=== PATIENT | male | born 1940 | race Caucasian/White ===

== ENCOUNTER 2019-07-21 22:46 | Inpatient (IN) | payer MEDICARE, OTHER ==
[~2019-07-21] VITALS: Ht 185.4 cm; Wt 154.3 kg
[~2019-07-21 22:46] MED LIST: ACET325 PO; ASPI81CH PO; BISA10S PR; CIPRO500 MG PO; Cymbalta30 MG PO; DICY20 PO; DOCU100 PO; DULO30 PO; Duragesic 12 M12 MCG TOP; FENT25TP TOP; FISH1000; FOLI400 PO; GABA800 PO; GLIM4 PO; GLIP2.5ER; HYDACE10B PO; HYDACE5 PO; IBUHYD PO; INSDET100 SC; LEVO750 PO; LISI5 PO; LOVA20 PO; Lovastatin10 MG PO; METF850 PO; Norco 10-325 T1 EACH PO; OXYC15ER PO; PIOG45 PO; PROM25 PO; Prinivil10 MG PO; RANI150; RANI150 PO; Ranitidine HCl300 MG; SIMV10 PO; TERA2 PO; TERA5 PO; TOPI25 PO; TOPI50 PO; TRIHYD253A PO; TRIHYD253B PO; [UNRECOGNIZED DRUG - REMARK]; [UNRECOGNIZED DRUG - REMARK]; [UNRECOGNIZED DRUG - REMARK]
[2019-07-21 23:05] LABS: Calcium, Ionized (POC) 1.09 mmol/L (1.10-1.46); Chloride (POC) 95 mmol/L (98-108); Creatinine (POC) 1.4 mg/dL (0.8-1.3); Glucose (ISTAT POC) 456 mg/dL (70-99); Potassium (POC) 4.1 mmol/L (3.5-5.5); Sodium (POC) 132 mmol/L (135-148); Total CO2 (POC) 26 mmol/L (21-32)
[2019-07-21 23:11] LABS: BASOPHILS ABSOLUTE AUTO 0.08 K/mm3 (0.00-0.23); BASOPHILS PERCENT AUTO 1 % (0-2); EOSINOPHILS ABSOLUTE AUTO 0.09 K/mm3 (0.00-0.68); EOSINOPHILS PERCENT AUTO 1 % (0-6); Hematocrit 42.1 % (37.0-53.0); Hemoglobin 13.9 g/dL (13.5-17.5); IMMATURE GRAN ABSOLUTE AUTO 0.03 K/mm3 (0.00-0.10); IMMATURE GRAN PERCENT AUTO 0 % (0-1); LYMPHOCYTES ABSOLUTE AUTO 1.08 K/mm3 (0.84-5.20); LYMPHOCYTES PERCENT AUTO 11 % (21-46); MONOCYTES ABSOLUTE AUTO 0.73 K/mm3 (0.16-1.47); MONOCYTES PERCENT AUTO 7 % (4-13); Mean Corpuscular HGB 34.2 pg (26.0-34.0); Mean Corpuscular Volume 104 fL (80-100); Mean Platelet Volume 10.1 fL (9.1-12.4); NEUTROPHILS ABSOLUTE AUTO 7.92 K/mm3 (1.96-9.15); NEUTROPHILS PERCENT AUTO 80 % (41-73); Platelet Count 178 K/mm3 (150-400); RDW Coefficient Variation 11.8 % (11.7-14.2); RDW Standard Deviation 45.1 fL (35.1-46.3); Red Blood Cell Count 4.06 M/mm3 (4.30-5.90); White Blood Cell Count 9.93 K/mm3 (4.00-11.30)
[2019-07-21 23:33] LABS: Alanine Aminotransfer (ALT/SGP 20 U/L (12-78); Albumin, Blood 3.2 g/dL (3.4-5.0); Alk Phos 63 U/L (50-136); Anion Gap 10 mmol/L (6-16); Aspartate Aminotrans (AST/SGOT 15 U/L (12-37); Bilirubin, Total 0.4 mg/dL (0.1-1.0); Blood Urea Nitrogen 21 mg/dL (8-24); Bun/Creatinine Ratio 16.9 (12.0-20.0); CO2, Blood 24 mmol/L (21-32); Calcium, Blood 8.2 mg/dL (8.5-10.1); Chloride, Blood 100 mmol/L (98-108); Creatinine, Blood 1.24 mg/dL (0.60-1.20); Globulin, Blood 3.2 g/dL (2.2-4.0); Glomerular Filtration Rate 60 (60-); Glucose, Blood 474 mg/dL (70-99); Potassium, Blood 4.1 mmol/L (3.5-5.5); Sodium, Blood 134 mmol/L (136-145); Total Protein, Blood 6.4 g/dL (6.4-8.2); Troponin I <0.015 ng/mL (0.000-0.040)
[2019-07-21 23:33] LABS: Base Excess Venous -2.5 mmol/L; Bicarbonate Venous 20.4 mmol/L (24.0-30.0); PCO2 Venous 62.7 mmHg (38-42); PO2 Venous 33.9 mmHg (38-42); pH Blood Venous 7.21 (7.34-7.37)
[2019-07-22 02:40] LABS: Source, Urine Catheter
[2019-07-22 02:53] LABS: Bilirubin, Urine Neg (Neg); Blood, Urine Neg (Neg); Glucose Qualitative, Urine 4+ (Neg); Ketones, Urine Neg (Neg); Leukocyte Esterase, Urine Neg (Neg); Nitrite, Urine Neg (Neg); Protein, Urine Neg (Neg); Specific Gravity, Urine 1.015 (1.003-1.022); Urobilinogen, Urine NORM (Normal)
[2019-07-22 03:08] LABS: Appearance, Urine Clear (Clear); Color, Urine Yellow (P-Yellow)
--- NOTE | 2019-07-22 06:08 | NUR ---
ASSUMED PT CARE FROM CECI WEBER IN ED PT ADMITTED TO UNIT SECONDARY TO RESPIRATORY FAILURE WITH ACIDOSIS, WELL HYPERGLYCEMIA. PT ARRIVED SITTING UP IN BED TALKING. PT DID NOT APPEAR TO BE IN ANY RESPIRATORY DISTRESS AT THIS TIME. BIPAP SET UP IN ROOM BY RT; HOWEVER, PT DID NOT REQUIRE BIPAP UPON ARRIVAL. BIOX ON ROOM AIR WAS 93%. PT APPEARED ALERT AND ORIENTED AND ABLE TO MAKE HIS NEEDS KNOWN. PT HAS A STUTTER NOTED, BUT UNSURE IF THIS IS PT'S BASELINE. PT TRANSFERRED OVER TO ICU BED; PROSTHESIS TO RLE REMOVED TO OBTAIN WEIGHT. PT'S BELONGINGS WERE PLACED UP IN CUPBOARD IN ROOM. NOTED POOR HYGIENE UPON ARRIVAL WITH ABDOMINAL BINDER SATURATED IN UNKNOWN MATTER THAT IS EITHER FROM SWEAT, URINE, AND/OR FECES IT IS BROWN IN COLOR. PT WAS GIVEN A BED BATH AND QUESTIONED REGARDING THE CARE HE RECEIVES AT HOME. PT STATES HE HAS A CAREGIVER THAT COMES OUT FIVE DAYS A WEEK, BUT SHE DOES NOT WORK ON THE WEEKENDS. PT STATES SHE PREPS HIS MEALS FOR HIM AND HE IS SUFFICIENT AT CHECKING HIS OWN BLOOD SUGARS AND ADMINISTERING HIS OWN INSULIN USING AN INSULIN PEN. PT WAS NOTED TO HAVE A BASELINE TREMOR UPON ADMIT. PT STATES HE DOES NOT NORMALLY HAVE THIS TREMOR AT HOME. HOWEVER, AFTER OBTAINING HEALTH HISTORY PT DOES CLAIM THAT HE DRINKS ONE GLASS OF [place] A NIGHT AND HIS LAST DRINK WAS 07/20/19. LUNG SOUNDS CLEAR T/O. RHYTHM NOTED TO BE AFIB, WHICH IS NOT A NEW ONSET FOR PT. HR 50-70'S. ABDOMEN IS SEVERELY DISTENDED WITH NOTED ABDOMINAL/UMBILICAL HERNIA; ACTIVE BTX4. PT CLAIMS HE DOES NOT KNOW WHEN HIS LAST BM WAS. NO SAENZ CATH NOTED; HOWEVER, PT STATES HE DOES KNOW WHEN HE HAS TO USE THE BATHROOM. WOUNDS NOTED TO BOTTOM OF LEFT FOOT. PT STATES THOSE MUST BE NEW HE FREQUENTLY GOES TO HIS SUGAR SAMPLER FOR CHECKS. HE STATES HE DID SUSTAIN A FALL PRIOR TO COMING TO ER AND THAT IS WHEN HE MUST HAVE OBTAINED SCABS/OPEN AREAS TO ALL DIGITS ON LEFT FOOT; PT DENIES HITTING HIS HEAD OR LOSING CONSCIOUSNESS. SEE PHOTOS IN CHART R/T WOUNDS. PT HAS A FIELD START IV TO LEFT HAND; NS INFUSING AT 125MLS/HR. PT IS CURRENTLY NPO; HOWEVER, IS FREQUENTLY ASKING WHAT IS FOR BREAKFAST AND IF HE CAN HAVE WATER. EXPLAINED TO PT TREATMENT GOAL AND PT DOESN'T APPEAR TO HAVE AN UNDERSTANDING R/T BLOOD SUGAR CONTROL HE STATED THAT THEY GAVE HIM INSULIN IN ER, BUT DID NOT FEED HIM. ATTEMPTED TO RE-EXPLAIN WHY HE WASN'T EATING AND PT CONTINUED TO ASK WHAT WAS FOR BREAKFAST. WILL CONTINUE TO REINFORCE. PT ORIENTED TO ROOM AND CALL LIGHT. CALL LIGHT LEFT WITHIN REACH AND PT ABLE TO DEMONSTRATE HOW TO CALL FOR ASSISTANCE TO MAKE HIS NEEDS KNOWN. WILL CONTINUE TO MONITOR UNTIL REPORT IS HANDED OFF TO ONCOMING RN.
--- NOTE | 2019-07-22 07:21 | NUR ---
ASSUMED CARE: PT RESTING QUIETLY IN BED. VSS, AFIB ON TELE, HR IN 50S-60S. NO ACUTE NEEDS OR CONCERNS NOTED AT THIS TIME. RA, SATTING MID 90S
[2019-07-22 07:47] LABS: PCO2 Arterial 56.1 mmHg (35-45)
[2019-07-22 07:48] LABS: pH Blood Arterial 7.28 (7.35-7.45)
--- NOTE | 2019-07-22 07:58 | NUR ---
ASAD RECIEVED WITH CRITICAL PH. CALL TO DR ZENG. LET HIM KNOW THAT PT ROUSES AND TALKS TO STAFF, ON RA. DR INSTRUCTED TO CHANGE ORDER FOR BREATHING TX. STATES HE WILL COME SEE PT FOR FURTHER INSTRUCTIONS
--- NOTE | 2019-07-22 08:31 | NUR ---
ASKED PT IF HE KNEW WHAT MEDICATIONS HE TAKES. STATES HE DOESN'T HAVE THEM MEMORIZED AND REQUESTED I CALL HIS PHARMACY, [facility]. DUE TO HOLIDAY, PHARMACY IS CLOSED
--- NOTE | 2019-07-22 09:42 | NUR ---
PT RESTING, LAYS WITH HEAD TILTED BACK, SATTING 94% ON ROOM AIR. ROUSES EASILY. DISCUSSED LAST CONVERSATION WITH DR ZENG WITH RT. REPLACED BIPAP. SETTINGS 05/03 WITH 25% FIO2. COATING MACHINE HELPER AWARE. DR ZENG HAS NOT BEEN BY TO SEE PT SINCE PHONE CALL
--- NOTE | 2019-07-22 10:52 | NUR ---
PT AWAKE AND TAKING BREAK FROM BIPAP AT THIS TIME. SATTING 99% ON ROOM AIR
--- NOTE | 2019-07-22 12:46 | NUR ---
CALL TO DR ZENG TO MAKE HIM AWARE THAT PT MOVED TO ICU 5 AND THAT HE WAS ON CPAP DURING NAP. DR JUNE WILL BE BY TO SEE PT SHORTLY. ALLOWED HIM TO HAVE DIABETIC DIET IN MEANTIME
--- NOTE | 2019-07-22 17:27 | NUR ---
SHIFT SUMMARY: PT SITTING UPRIGHT IN BED. ROOM AIR, CPAP WHILE SLEEPING. DR ZENG CAME TO SEE PT AND REVIEWED MEDS. WAS AWARE THAT PT WAS NOT ON ANTICOAGULANT FOR AFIB OR STEROIDS. 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 NO ACUTE NEEDS OR CONCERNS AT THIS TIME.
--- NOTE | 2019-07-22 20:00 | NUR ---
RECEIVED HAND OFF FROM CECI BRYSON USING SBAR. LYING IN SEMI FOLWERS WITH EYES OPEN. AAO X3, ROBINS, FOLLOWS ALL COMMANDS. REORIENTED TO ROOM, CALL SYSTEM, AND POC, VOICES UNDERSTANDING. RESPIRATIONS EVEN AND UNLABORED ON ROOM AIR. ABDOMEN ROUND AND OBESE, LARGE GRAPEFRUIT SIZE HERNIA NOTED TO MIDLINE UPPER ABD. DENIES PAIN OR DISCOMFORT TO AREA. CONTINENT OF BOWEL AND BLADDER, USES URINAL AT BEDSIDE. WOUND CARE PERFORMED TO LLE, HEEL PROTECTOR APPLIED. MEP[ILEX APPLIED TO SACRUM FOR COMFORT. DENIES FURTHER NEEDS AT THIS TIME. SAFETY MEASURES IN PLACE. WILL CONTINUE TO MONITOR.
[2019-07-23 03:10] LABS: BASOPHILS ABSOLUTE AUTO 0.07 K/mm3 (0.00-0.23); BASOPHILS PERCENT AUTO 1 % (0-2); EOSINOPHILS ABSOLUTE AUTO 0.17 K/mm3 (0.00-0.68); EOSINOPHILS PERCENT AUTO 2 % (0-6); Hematocrit 40.5 % (37.0-53.0); Hemoglobin 13.5 g/dL (13.5-17.5); IMMATURE GRAN ABSOLUTE AUTO 0.02 K/mm3 (0.00-0.10); IMMATURE GRAN PERCENT AUTO 0 % (0-1); LYMPHOCYTES ABSOLUTE AUTO 1.39 K/mm3 (0.84-5.20); LYMPHOCYTES PERCENT AUTO 19 % (21-46); MONOCYTES ABSOLUTE AUTO 0.59 K/mm3 (0.16-1.47); MONOCYTES PERCENT AUTO 8 % (4-13); Mean Corpuscular HGB 33.8 pg (26.0-34.0); Mean Corpuscular HGB Conc 33.3 g/dL (31.5-36.5); Mean Corpuscular Volume 102 fL (80-100); Mean Platelet Volume 9.8 fL (9.1-12.4); NEUTROPHILS ABSOLUTE AUTO 5.02 K/mm3 (1.96-9.15); NEUTROPHILS PERCENT AUTO 69 % (41-73); Platelet Count 196 K/mm3 (150-400); RDW Coefficient Variation 11.6 % (11.7-14.2); RDW Standard Deviation 43.9 fL (35.1-46.3); Red Blood Cell Count 3.99 M/mm3 (4.30-5.90); White Blood Cell Count 7.26 K/mm3 (4.00-11.30)
[2019-07-23 03:33] LABS: Anion Gap 7 mmol/L (6-16); Blood Urea Nitrogen 15 mg/dL (8-24); Bun/Creatinine Ratio 20.8 (12.0-20.0); CO2, Blood 27 mmol/L (21-32); Calcium, Blood 8.1 mg/dL (8.5-10.1); Chloride, Blood 103 mmol/L (98-108); Creatinine, Blood 0.72 mg/dL (0.60-1.20); Glomerular Filtration Rate >60 (60-); Glucose, Blood 236 mg/dL (70-99); Magnesium, Blood 1.9 mg/dL (1.6-2.4); Potassium, Blood 3.6 mmol/L (3.5-5.5); Sodium, Blood 137 mmol/L (136-145)
[2019-07-23 03:35] LABS: Triiodothyronine, Free 1.86 pg/mL (2.18-3.98)
[2019-07-23 05:16] LABS: PCO2 Arterial 42.2 mmHg (35-45); PO2 Arterial 71.9 mmHg (80-100); pH Blood Arterial 7.39 (7.35-7.45)
--- NOTE | 2019-07-23 07:43 | NUR ---
ASSUMED CARE: PT RESTING QUIETLY IN BED. DR TURK AT BEDSIDE. NO ACUTE NEEDS OR CONCERNS AT THIS TIME.
--- NOTE | 2019-07-23 07:44 | NUR ---
SHIFT SUMMARY HAS HAD DIFFICULTY RESTING THIS SHIFT. HAS DEINED OFFERS TO HELP HIM ADJUST HIMSELF IN BED, NURSING THEN ASSISTED IN DIRECTING HIM INTO A MORE COMFORTABLE POSITION. SAFETY MEAURES IN PLACE. HAND OFF GIVEN TO DAY SHIFT USING SBAR.
[2019-07-23] MEDS ORDERED: Humulin R500 UNIT/1 (10:10)
[2019-07-23] MEDS ORDERED: ALBU3IS INH (10:13)
[2019-07-23] MEDS ORDERED: XARELTO20 MG PO (10:16)
--- NOTE | 2019-07-23 11:08 | NUR ---
Met with patient to review the past few months of his life and his needs. Pt has poor eye contact, poor interest in discussing a plan of care but was willing to cooperate. Review of history pt has caregiver daily four to five hours. He states most of his day is on the couch. Caregiver does shopping and meal prep. He lives alone in an appartment in [place]. He denies falling until recently. He denies marijuanna use, states he drinks a shot of vodka every night because he likes it. He states he is up and down all night to urinate and does not sleep well. He takes pain medicine regularly. No dicussion of tobacco use of possible withdrawls Pt states he does not have friends or any social activity. He has brothers that he rarely speaks with. He states they would help if he needs them. He does not have a will or a polst or POA. He wants to just be let go. Asked him to fill our a polst he refused. Refused conversation about his needs and future. We had a very blunt discussion about prognosis and quality of life and comorbid conditions. We discussed moving to a place with more support and safety. Advised him to get a first alert alarm. He does not want to have a future plan he does not think he will live long. Reviewed that if he starts cycling through the ER and hospital we will press him to go to assited living as having no plan will cause him suffering. Pt KPS score to approx. 50%. Pt high risk for readmission and falls and substance abuse. He states his eye site is worsening because of cataracts and his hearing is declining. That makes him a risk for dementia. Will review with PT/OT what they reccomend. hr manager has order for home health. pt would benefit from transitional care team and more frequent follow up with primary care. Advised patient to fill out a polst with his doctor and keep a photocopy in his wallet.
--- NOTE | 2019-07-23 17:10 | NUR ---
[facility] [employer] ARRIVED TO TRANSPORT PT HOME FROM HOSPITAL. IV DC'D AND INSTRUCTIONS PROVIDED BY STAFF. PT ESCORTED OUT VIA WHEEL CHAIR BY [facility] [employer]
== END 2019-07-23 17:15 | disposition home or self-care (01) | DRG 205 ==
LOC: ER 22:46 → ICUE 07-22 04:27 → ICUW 07-22 04:27 → ICUE 07-22 12:17 → ENPENDDIS 07-23 08:04 → ICUE 07-23 17:15
PROVIDERS: Emergency Medicine; Internal Medicine; ADMIT Family Medicine
PROC: 5A09357 Assistance with Respiratory Ventilation, Less than 24 Consecutive Hours, Continuous Positive Airway Pressure (ICD-10-PCS; principal; 2019-07-22)
DX: E66.2 Morbid (severe) obesity with alveolar hypoventilation (principal); G92 Toxic encephalopathy; J96.21 Acute and chronic respiratory failure with hypoxia; J96.22 Acute and chronic respiratory failure with hypercapnia; N17.9 Acute kidney failure, unspecified; E87.1 Hypo-osmolality and hyponatremia; Z68.41 Body mass index [BMI] 40.0-44.9, adult; J44.9 Chronic obstructive pulmonary disease, unspecified; E11.65 Type 2 diabetes mellitus with hyperglycemia; I10 Essential (primary) hypertension; Z74.09 Other reduced mobility; G47.33 Obstructive sleep apnea (adult) (pediatric); I48.2 Chronic atrial fibrillation; I95.9 Hypotension, unspecified; E78.5 Hyperlipidemia, unspecified; F17.220 Nicotine dependence, chewing tobacco, uncomplicated; Z89.511 Acquired absence of right leg below knee; Z79.4 Long term (current) use of insulin; Z79.82 Long term (current) use of aspirin; Z79.899 Other long term (current) drug therapy
CPT/HCPCS: 36415; 36600; 70450; 71045; 80047; 80048; 80053; 81003; 82803; 82947; 83036; 83735; 84439; 84481; 84484; 85014; 85025; 93005; 93010; 94640; 94660; 96360; 97162; 97166; 97530; 99285-25; A9270; J1650; J1815; J7030

== ENCOUNTER 2022-04-24 09:32 | Emergency (ER) | payer MEDICARE, OTHER ==
[~2022-04-24] VITALS: Ht 182.9 cm; Wt 131.5 kg
[~2022-04-24 09:32] MED LIST changes: +ALBU3IS INH; +Humulin R500 UNIT/1; +XARELTO20 MG PO
[2022-04-24 10:33] LABS: BASOPHILS ABSOLUTE AUTO 0.02 K/mm3 (0.00-0.23); BASOPHILS PERCENT AUTO 0 % (0-2); EOSINOPHILS ABSOLUTE AUTO 0.04 K/mm3 (0.00-0.68); EOSINOPHILS PERCENT AUTO 1 % (0-6); Hematocrit 36.3 % (37.0-53.0); Hemoglobin 12.3 g/dL (13.5-17.5); IMMATURE GRAN ABSOLUTE AUTO 0.01 K/mm3 (0.00-0.10); IMMATURE GRAN PERCENT AUTO 0 % (0-1); LYMPHOCYTES PERCENT AUTO 13 % (21-46); MONOCYTES PERCENT AUTO 9 % (4-13); Mean Corpuscular HGB 35.3 pg (26.0-34.0); Mean Corpuscular HGB Conc 33.9 g/dL (31.5-36.5); Mean Corpuscular Volume 104 fL (80-100); Mean Platelet Volume 9.2 fL (9.1-12.4); NEUTROPHILS ABSOLUTE AUTO 3.52 K/mm3 (1.96-9.15); NEUTROPHILS PERCENT AUTO 77 % (41-73); Platelet Count 166 K/mm3 (150-400); RDW Coefficient Variation 11.7 % (11.7-14.2); RDW Standard Deviation 44.6 fL (35.1-46.3); Red Blood Cell Count 3.48 M/mm3 (4.30-5.90); White Blood Cell Count 4.59 K/mm3 (4.00-11.30)
[2022-04-24 10:45] LABS: Magnesium, Blood 1.8 mg/dL (1.6-2.4)
[2022-04-24 11:00] LABS: Bilirubin, Total 0.2 mg/dL (0.1-1.0); Bun/Creatinine Ratio 11.3 (12.0-20.0); Calcium, Blood 7.8 mg/dL (8.5-10.1); Creatinine, Blood 0.62 mg/dL (0.60-1.20); Globulin, Blood 3.1 g/dL (2.2-4.0); Potassium, Blood 3.3 mmol/L (3.5-5.5); Total Protein, Blood 6.1 g/dL (6.4-8.2)
[2022-04-24 12:06] LABS: C DIFFICILE DNA NEGATIVE (Negative)
[2022-04-24 13:14] LABS: Source, Urine Clean Catch
[2022-04-24 13:24] LABS: Appearance, Urine Hazy (Clear); Bilirubin, Urine Neg (Neg); Blood, Urine Neg (Neg); Color, Urine Yellow (P-Yellow); Glucose Qualitative, Urine Neg (Neg); Ketones, Urine Neg (Neg); Leukocyte Esterase, Urine 2+ (Neg); Nitrite, Urine Neg (Neg); Protein, Urine Neg (Neg); Specific Gravity, Urine 1.005 (1.003-1.022); Urobilinogen, Urine NORM (Normal); pH, Urine 6.5 (5.0-8.0)
[2022-04-24 13:36] LABS: Bacteria Many /hpf; Red Blood Cells, Urine 0-2 /hpf (0-2); Squamous Epithelial Cells Few /hpf (Few)
[2022-04-24] MEDS ORDERED: LOPE2C PO (14:28)
[2022-04-24] MEDS ORDERED: CEFD300 PO (14:28)
== END 2022-04-24 19:58 | disposition home or self-care (01) ==
LOC: ER 09:32
PROVIDERS: Student in an Organized Health Care Education/Training Program
DX: N39.0 Urinary tract infection, site not specified (principal); E87.6 Hypokalemia; R19.7 Diarrhea, unspecified; E11.649 Type 2 diabetes mellitus with hypoglycemia without coma; I10 Essential (primary) hypertension; E78.5 Hyperlipidemia, unspecified; F17.220 Nicotine dependence, chewing tobacco, uncomplicated; Z79.4 Long term (current) use of insulin; Z79.899 Other long term (current) drug therapy; Z79.01 Long term (current) use of anticoagulants; Z79.82 Long term (current) use of aspirin
CPT/HCPCS: 71046; 73660; 80053; 81001; 82947; 83735; 84145; 84484; 85025; 87493; 93005; 93010; 93926; A9270; J3475; J3480; J7060

== ENCOUNTER 2022-10-25 15:53 | Inpatient (IN) | payer MEDICARE, OTHER ==
[~2022-10-25] VITALS: Ht 185.4 cm; Wt 93.0 kg
[~2022-10-25 15:53] MED LIST changes: -ACET325 PO; +Acetaminophen650 M1 PO; +CEFD300 PO; +CELEBREX200 MG PO; +Clomiphene Citr50 MG PO; +DIPATR PO; +FLUTICASONE PRO16 GM; +FUROSEMIDE20 MG PO; +LEVEMIR FL100 UNIT/2 SC; +LOPE2C PO; +Lisinopril-Hct1 EAC4 PO; +Neurontin800 MG PO; +TRULICITY0.75 MG/01 SC
[2022-10-25 18:38] LABS: Hemoglobin 11.1 g/dL (13.5-17.5); Mean Corpuscular HGB 37.8 pg (26.0-34.0); Mean Corpuscular HGB Conc 35.8 g/dL (31.5-36.5); Mean Corpuscular Volume 105 fL (80-100); Mean Platelet Volume 10.4 fL (9.1-12.4); Platelet Count 171 K/mm3 (150-400); RDW Coefficient Variation 11.8 % (11.7-14.2); RDW Standard Deviation 45.8 fL (35.1-46.3); Red Blood Cell Count 2.94 M/mm3 (4.30-5.90); White Blood Cell Count 6.88 K/mm3 (4.00-11.30)
[2022-10-25 18:55] LABS: Alanine Aminotransfer (ALT/SGP 16 U/L (12-78); Albumin, Blood 2.5 g/dL (3.4-5.0); Albumin/Globulin Ratio 0.8 (0.8-1.8); Alk Phos 35 U/L (50-136); Anion Gap 13 mmol/L (6-16); Aspartate Aminotrans (AST/SGOT 28 U/L (12-37); Bilirubin, Total 0.4 mg/dL (0.1-1.0); Blood Urea Nitrogen 101 mg/dL (8-24); Bun/Creatinine Ratio 24.6 (12.0-20.0); CO2, Blood 22 mmol/L (21-32); Calcium, Blood 8.1 mg/dL (8.5-10.1); Chloride, Blood 94 mmol/L (98-108); Creatinine, Blood 4.11 mg/dL (0.60-1.20); Ethanol (Alcohol), Blood, Med <3 mg/dL; Glomerular Filtration Rate 14 (60-); Glucose, Blood 65 mg/dL (70-99); Potassium, Blood 4.7 mmol/L (3.5-5.5); Sodium, Blood 129 mmol/L (136-145); Total Protein, Blood 5.5 g/dL (6.4-8.2)
[2022-10-25 18:58] LABS: BAND PERCENT MAN 4 % (0-8); BASOPHILS PERCENT MAN 0 % (0-2); EOSINOPHILS ABSOLUTE MAN 0.06 K/mm3 (0.00-0.68); EOSINOPHILS PERCENT MAN 1 % (0-6); LYMPHOCYTES ABSOLUTE MAN 0.41 K/mm3 (0.84-5.20); LYMPHOCYTES PERCENT MAN 6 % (21-46); MONOCYTES ABSOLUTE MAN 0.48 K/mm3 (0.16-1.47); MONOCYTES PERCENT MAN 7 % (4-13); NEUTROPHILS ABSOLUTE MAN 5.91 K/mm3 (1.96-9.15); SEG NEUTROPHILS PERCENT MAN 82 % (41-73); TOTAL CELLS COUNTED 100
[2022-10-25 22:22] LABS: U Amphetamine Screen Not Detected; U Barbituate Screen Not Detected; U Benzodiazapine Screen Not Detected; U Buprenorphine Screen Not Detected; U Cannabinoids Screen Not Detected; U Cocaine Screen Not Detected; U Methadone Screen Not Detected; U Methamphetamine Screen Not Detected; U Opiates Screen DETECTED; U Oxycodone Screen Not Detected; U Phencyclidine Screen Not Detected; U Propoxyphene Screen Not Detected
[2022-10-25 23:55] LABS: Base Excess Venous -3.2 mmol/L; PCO2 Venous 40.6 mmHg (38-42)
[2022-10-25 23:56] LABS: pH Blood Venous 7.35 (7.34-7.37)
[2022-10-26] MEDS ORDERED: TERA5 PO (00:10)
[2022-10-26] MEDS ORDERED: TAMSULOSIN HCL0.4 M1 PO (00:10)
[2022-10-26] MEDS ORDERED: Lovastatin10 MG PO (00:13)
[2022-10-26] MEDS ORDERED: CYMBALTA30 M2 PO (00:23)
[2022-10-26] MEDS ORDERED: DULOXETINE HCL60 M1 PO (00:23)
[2022-10-26] MEDS ORDERED: Glucophage 850850 MG PO (00:25)
[2022-10-26 05:37] LABS: Bun/Creatinine Ratio 23.2 (12.0-20.0); Calcium, Blood 7.2 mg/dL (8.5-10.1); Creatinine, Blood 4.26 mg/dL (0.60-1.20)
[2022-10-26 05:42] LABS: Influenza A, PCR NEGATIVE (NEGATIVE); Influenza B, PCR NEGATIVE (NEGATIVE); Resp Syncytial Virus, PCR NEGATIVE (NEGATIVE); SARS-Cov-2 (COVID-19) PCR, MMC NEGATIVE (NEGATIVE)
--- NOTE | 2022-10-26 05:54 | NUR ---
NEW ADMIT FROM ED AT 0130AM. PT A&O TO SELF. BEDREST. UNABLE TO GET ACCURATE BP DUE TO TREMORS AND AGITATION. PT ON 12L REBREATHER MASK ON. SKIN ASSESSMENT COMPLETED WITH RANI Hill RN. BED ALARM ON. WILL CONTINUE WITH POC.
--- NOTE | 2022-10-26 05:59 | NUR ---
AT 0245 PT HAD CRITICAL LAB K+ OF 6. NOTIFIED DR HARE. RECEIVED ORDERS TO GIVE 1GM CALCIUM GLUCONATE IV X1, 5 UNITS REGULAR INSULIN IV X 1, AND 1AMP D50 IV X 1. PT AGITATED AND PULLING ON NC AND IV. REQUESTED ORDER FOR MITTS RESTRAINT AND RECEIVED.
[2022-10-26 06:30] LABS: Thyroid Stimulating Hormone 1.18 uIU/mL (0.360-4.800)
[2022-10-26 07:13] LABS: Appearance, Urine Clear (Clear); Blood, Urine 1+ (Neg); Color, Urine Amber (P-Yellow); Glucose Qualitative, Urine Neg (Neg); Ketones, Urine 1+ (Neg); Leukocyte Esterase, Urine 1+ (Neg); Nitrite, Urine Neg (Neg); Protein, Urine 1+ (Neg); Source, Urine Foley catheter; Specific Gravity, Urine 1.015 (1.003-1.022); Urobilinogen, Urine NORM (Normal)
[2022-10-26 07:48] LABS: Bilirubin, Urine 1+ (Neg)
[2022-10-26 07:51] LABS: Bacteria Mod /hpf; Calcium Oxalate Crystals Mod /hpf; Red Blood Cells, Urine 0-2 /hpf (0-2); Squamous Epithelial Cells Mod /hpf (Few); White Blood Cells, Urine 0-2 /hpf (0-5)
[2022-10-26 07:52] LABS: Transitional Epithelial Cells Rare /hpf (0-Rare)
[2022-10-26 09:17] LABS: BASOPHILS ABSOLUTE AUTO 0.03 K/mm3 (0.00-0.23); BASOPHILS PERCENT AUTO 1 % (0-2); EOSINOPHILS ABSOLUTE AUTO 0.13 K/mm3 (0.00-0.68); EOSINOPHILS PERCENT AUTO 2 % (0-6); Hematocrit 29.9 % (37.0-53.0); Hemoglobin 10.4 g/dL (13.5-17.5); IMMATURE GRAN ABSOLUTE AUTO 0.01 K/mm3 (0.00-0.10); IMMATURE GRAN PERCENT AUTO 0 % (0-1); LYMPHOCYTES ABSOLUTE AUTO 0.64 K/mm3 (0.84-5.20); LYMPHOCYTES PERCENT AUTO 11 % (21-46); MONOCYTES ABSOLUTE AUTO 0.56 K/mm3 (0.16-1.47); MONOCYTES PERCENT AUTO 10 % (4-13); Mean Corpuscular HGB 36.4 pg (26.0-34.0); Mean Corpuscular HGB Conc 34.8 g/dL (31.5-36.5); Mean Corpuscular Volume 105 fL (80-100); Mean Platelet Volume 10.1 fL (9.1-12.4); NEUTROPHILS ABSOLUTE AUTO 4.35 K/mm3 (1.96-9.15); NEUTROPHILS PERCENT AUTO 76 % (41-73); Platelet Count 186 K/mm3 (150-400); RDW Coefficient Variation 11.7 % (11.7-14.2); RDW Standard Deviation 44.9 fL (35.1-46.3); Red Blood Cell Count 2.86 M/mm3 (4.30-5.90); White Blood Cell Count 5.72 K/mm3 (4.00-11.30)
[2022-10-26 09:35] LABS: Albumin, Blood 2.4 g/dL (3.4-5.0); Albumin/Globulin Ratio 0.8 (0.8-1.8); Bilirubin, Total 0.4 mg/dL (0.1-1.0); Bun/Creatinine Ratio 21.5 (12.0-20.0); Calcium, Blood 7.6 mg/dL (8.5-10.1); Creatinine, Blood 4.6 mg/dL (0.60-1.20); Globulin, Blood 3.1 g/dL (2.2-4.0); Potassium, Blood 4.5 mmol/L (3.5-5.5); Total Protein, Blood 5.5 g/dL (6.4-8.2)
--- NOTE | 2022-10-26 10:46 | NUR ---
Supportive visit this AM. Pt resting in bed and appears pleasantly confused. Pt's speech garbled and difficult to understand. Pt appears to engage in non sensical conversation. When asked how he is feeling Pt appears to discuss insurance and other difficult to understand topics. Ended visit to allow Pt to rest. Called and spoke with Pt's friend Guero who is listed as NOK. Guero reports not seeing Pt for approximately 1 month but at baseline Pt's mentation is clear. He states that Pt has "kind of given up on life". He reports Pt does not engage in any activity and is immobile. He reports Pt does receive caregiver support. Guero reports Pt does have a brother but name and contact information is unknown. He reports brother lives in "[place] or [place]". Guero is agreeable to make decisions if needed and if family can not be contacted. Discussed Pt's code status wishes with Guero reporting not knowing wishes for CPR and Intubation. Palliative Care will remain available for supportive visits and advanced care planning.
--- NOTE | 2022-10-26 20:14 | NUR ---
SHIFT SUMMARY PTN CONFUSED WITH SOME COHERENT ANSWERS. CONTINUES TO HAVE MITTS TO KEEP HIM FROM PULLING AT LINES. RESTRAINTS PLACED AT 3 AM 12/7, Q2 CHECKS COMPLETED. HE CONTINUOUSLY MOVES, AND TELEMETRY REPORTED JUST GETTING ARTIFACT. LINES CHECKED AND IN PLACE. SAENZ DRAINING DARK URINE TO GRAVITY. END SHIFT ORDER FOR LACTULOSE ENEMA AND RECTAL TUBE PLACED PER ORDERS. SKIN WITH SOME REDNESS UNDER RIGHT ARM, PANNUS, AND LEFT GROIN. BUTTOCKS REDDENED, BLANCHING. PTN SHIFTED WITH PILLOWS AND REPOSITIONED NEEDED. END SHIFT IV NOTED TO BE LEAKING, PASSED ONTO PM SHIFT. CONTINUE TO MONITOR.
--- NOTE | 2022-10-27 03:13 | NUR ---
Patient resting in bed, no complaints of pain or discomfort.
[2022-10-27 05:43] LABS: BASOPHILS ABSOLUTE AUTO 0.02 K/mm3 (0.00-0.23); BASOPHILS PERCENT AUTO 0 % (0-2); EOSINOPHILS ABSOLUTE AUTO 0.04 K/mm3 (0.00-0.68); EOSINOPHILS PERCENT AUTO 1 % (0-6); Hematocrit 31.9 % (37.0-53.0); Hemoglobin 11.2 g/dL (13.5-17.5); IMMATURE GRAN ABSOLUTE AUTO 0.05 K/mm3 (0.00-0.10); IMMATURE GRAN PERCENT AUTO 1 % (0-1); LYMPHOCYTES ABSOLUTE AUTO 0.48 K/mm3 (0.84-5.20); LYMPHOCYTES PERCENT AUTO 6 % (21-46); MONOCYTES ABSOLUTE AUTO 0.49 K/mm3 (0.16-1.47); MONOCYTES PERCENT AUTO 7 % (4-13); Mean Corpuscular HGB 36.5 pg (26.0-34.0); Mean Corpuscular HGB Conc 35.1 g/dL (31.5-36.5); Mean Corpuscular Volume 104 fL (80-100); Mean Platelet Volume 9.8 fL (9.1-12.4); NEUTROPHILS ABSOLUTE AUTO 6.47 K/mm3 (1.96-9.15); NEUTROPHILS PERCENT AUTO 86 % (41-73); Platelet Count 215 K/mm3 (150-400); RDW Coefficient Variation 11.8 % (11.7-14.2); RDW Standard Deviation 44.4 fL (35.1-46.3); Red Blood Cell Count 3.07 M/mm3 (4.30-5.90); White Blood Cell Count 7.55 K/mm3 (4.00-11.30)
[2022-10-27 06:29] LABS: Bun/Creatinine Ratio 29.7 (12.0-20.0); Calcium, Blood 8.2 mg/dL (8.5-10.1); Creatinine, Blood 3.7 mg/dL (0.60-1.20); Potassium, Blood 4.1 mmol/L (3.5-5.5)
[2022-10-27 06:47] LABS: PCO2 Arterial 33.2 mmHg (35-45); PO2 Arterial 100 mmHg (80-100); pH Blood Arterial 7.33 (7.35-7.45)
--- NOTE | 2022-10-27 15:54 | NUR ---
Pt resting in bed and is pleasantly confused. Bilateral wrist restraints noted. Pt appears mildly anxious. Pt engages in non sensical conversation. Ended visit to allow Pt to rest. Spoke with Pt's Primary RN Rosaura and discussed case. Called Pt's caregiver company [employer] and obtained Pt's casemanager information for [facility]. Called and spoke with Jazmine Gama. She reports no longer being Pt's casemanager and is in a different position but does have sibbling contact information. Obtained phone number for Stephen Horvath. Jazmine reports Pt's new casemanager is Stefanie Joshi. Stephen Horvath [phone] Called and spoke with Stephen. Stephen reports driving to MD appointment at this time. He reports being Pt's half brother and is agreeable to be a doorperson or luggage porter but his full brother may want to be contacted as well. Stephen reports he will call back with contact info on Pt's full brother. Palliative Care will remain available.
--- NOTE | 2022-10-27 17:52 | NUR ---
SHIFT SUMMARY PATIENT DENIES PAIN, NAUSEA, AND SHORTNESS OF BREATH. PATIENT IS ON BEDREST. PATIENT IS ON ROOM AIR, SATURATING AT 95%. PATIENT A&O T0 SELF, MUMBLING A LOT. GARBLED AND SLURRED SPEECH. PATIENT OCCASSIONALLY SPEAKS IN TANGENTIAL CONVERSATION. PATIENT IN MITTS ON BOTH HANDS AT BEGINNING OF SHIFT. PATIENT THRASHING IN BED, PULLING AT LINES, TAKING MITTS OFF. DR. LEWIS NOTIFIED AND NEW ORDERS FOR BILAT SOFT WRISTS. RECTAL TUBE CHANGED, INTACT AND DRAINING TO GRAVITY. SAENZ INTACT AND DRAINING TO GRAVITY, URINE IS TEA COLORED. PATIENT TOLERATED LACTULOSE ENEMA THROUGH RECTAL TUBE WELL. NEW IV PLACED TO LEFT WRIST. PATIENT NPO. PALLIATIVE CARE CONSULTED. PATIENT CAREGIVER CALLED FOR UPDATE. PATIENT REPOSITIONED Q2H WITH 3 STAFF ASSIST.
--- NOTE | 2022-10-28 03:13 | NUR ---
Patient resting in bed at this time, no complaints of pain or discomfort.
[2022-10-28 05:22] LABS: Hematocrit 30.2 % (37.0-53.0); Hemoglobin 10.3 g/dL (13.5-17.5); Mean Corpuscular HGB 36.4 pg (26.0-34.0); Mean Corpuscular HGB Conc 34.1 g/dL (31.5-36.5); Mean Corpuscular Volume 107 fL (80-100); Mean Platelet Volume 9.6 fL (9.1-12.4); Platelet Count 205 K/mm3 (150-400); RDW Coefficient Variation 11.9 % (11.7-14.2); RDW Standard Deviation 46.7 fL (35.1-46.3); Red Blood Cell Count 2.83 M/mm3 (4.30-5.90); White Blood Cell Count 9.25 K/mm3 (4.00-11.30)
[2022-10-28 05:23] LABS: Bicarbonate Venous 17.1 mmol/L (24.0-30.0); PCO2 Venous 47.6 mmHg (38-42)
[2022-10-28 05:24] LABS: pH Blood Venous 7.21 (7.34-7.37)
[2022-10-28 06:11] LABS: Bun/Creatinine Ratio 33.8 (12.0-20.0); Calcium, Blood 7.9 mg/dL (8.5-10.1); Creatinine, Blood 3.11 mg/dL (0.60-1.20); Percent Saturation 9.8 % (20.0-50.0); Potassium, Blood 4.3 mmol/L (3.5-5.5); Thyroid Stimulating Hormone 0.773 uIU/mL (0.360-4.800)
--- NOTE | 2022-10-28 08:00 | NUR ---
PT REMAINS OUT OF RESTRAINTS DUE TO BI-PAP AND UNIT PROTOCOL. HE IS RESPONSIVE TO PHYSICAL STIMULI ONLY, AND WILL OPEN EYES AND MOAN/MUMBLE. HE WILL NOT MAKE EYE CONTACT OR TRACK VISUALLY. HIS MOANING IS NOT COMPREHENSIBLE. RESPIRATORY THERAPY ROUNDED ON PT. RECTAL TUBE IN PLACE. IV FLUIDS INFUSING INTO LEFT ARM IV. PT IN ATTENDS. SAENZ DRAINING TO GRAVITY. PT WILL MOAN WITH RE-POSITIONING IN BED, TOTAL CARE, REQUIRES THREE STAFF TO ROLL PT.
--- NOTE | 2022-10-28 12:18 | NUR ---
CHARLES JOYNER, NURSE FROM PALLIATIVE CARE, CALLS TO UPDATE RN THAT HE SPOKE TO PT'S FAMILY (BROTHERS) AND THE FAMILY IS IN SUPPORT OF CHANGING CODE STATUS TO DNR AND MOVING FORWARD WITH COMFORT MEASURES ONLY. CHARLES STATES THAT HE SPOKE TO DR. LEWIS, WHO IS IN AGREEMENT. CHARLES WILL UPDATE ORDERS.
--- NOTE | 2022-10-28 15:24 | NUR ---
Spoke with Primary RN Geneva and Dr Walker. Discussed case and concerns. Pt declining and requiring BIPAP. Pt also somnolent. Family may benefit from goals of care discussion. Called and spoke with Pt brothers Kalyn Grande, and Stephen Horvath. Provided update and reviewed plan of care. Brother Stephen reports having weekly phone conversations with Pt and brother Kalyn reports not speaking with Pt since last year. Both report Pt has given up on life. They report his quality of life has significantly diminished. Both agree that Pt would not want CPR or to be intubated. Both reports at this stage in his life he would want to focus on comfort. Discussed options to continue current plan of care with potential of needing to escalate and the option for comfort care. Educated on comfort care philosophy with V/U made by both. PC CECI Gray witnessed conversations. Conversations did take place separately by phone with each brother. Both brothers are in agreement for comfort care. Spoke with Dr Walker. Placed comfort care order, comfort care order set, and D/C maintenance medications per V/O from Dr Walker. Palliative Care will remain available for symptom management and supportive visits.
--- NOTE | 2022-10-28 17:34 | NUR ---
SHIFT SUMMARY PT IS COMFORT CARE. BI-PAP REMOVED. NO MOANING NOTED. MYOCLONIC MOVEMENTS CONTINUE. PT IS RESPONSIVE TO PHYSICAL STIMULI. PALLIATIVE CARE HAS SPOKEN WITH PT'S BROTHER AND HALF BROTHER, WHO AGREED TO CHANGE OF CODE STATUS AND COMFORT CARE MEASURES ONLY. RN WILL CONTINUE TO MONITOR AND GIVE REPORT TO ONCOMING NURSE.
--- NOTE | 2022-10-29 05:24 | NUR ---
SUMMARY: PATIENT DID WELL OVERNIGHT. NO ECUTE EVENTS. PATIENT ON COMFORT MEASURES. ABLE TO TOLERATE PUDDING AND WATER. MEDS GIVEN PER EMAR. SAENZ IN PLACE. PATIENT ABLE TO TELL YOU HIS NAME AND THAT HE IS IN THE HOSPITAL. REPOSITIONED IN BED THROUGHOUT NIGHT. 2-3 PERSON MAX ASSIST FOR MOBILITY.
--- NOTE | 2022-10-29 18:13 | NUR ---
PT CONTINUES ON COMFORT CARE. HE IS ALERT TO VERBAL STIMULI, AND ABLE TO COMMUNICATE IN COMPREHENSIBLE SENTENCES. PT IS ON ROOM AIR. LIMITED MYOCOLONIC MOVEMENTS NOTED. PROMINENT HERNIA IN ABD. PASSED AN UNMEASURABLE AMOUNT OF STOOL IN ATTENDS. SAENZ IS DRAINING TO GRAVITY. PT DENIES PAIN. HE REQUESTS WATER FREQUENTLY AND IS EATING PUREED FOODS WELL. RN WILL CONTINUE TO MONITOR. BED IN LOWEST POSITION.
--- NOTE | 2022-10-29 21:17 | NUR ---
COMFORT ASSESSMENT PT STATES HE HAS SEVERE BACK PAIN. MEDICATED FOR PAIN, SEE EMAR
--- NOTE | 2022-10-30 04:55 | NUR ---
SHIFT SUMMARY ADMITTED FOR AMS. DNR CODE. ON COMFORT CARE. PAIN AND ANXIETY MEDICATION GIVEN THIS SHIFT. PT FREQUENTLY CALLS OUT, MOSTLY SEEMING TO TALK GIBBERISH OR BE SIMPLY VERBALIZING. HE DOES RESPOND IN GARBLED SPEECH TO YES OR NO QUESTIONS. HE IS A FEEDER ON A PUREE DIET. I DO GIVE HIM HIS RX IN APPLESAUCE. SAENZ IN PLACE. RIGHT BKA. DIARRHEA NOTED THIS SHIFT. HE IS ON BEDREST. 4HR/DAY CAREGIVER REPORTED AT HIS HOME PRIOR TO THIS DECLINE. HE WILL REQUIRE ROUND THE CLOCK CARE WITH HIS CURRENT MENTATION STATUS AND CARE NEEDS.
--- NOTE | 2022-10-30 17:45 | NUR ---
1715: RN CALLED DR REYES TO REPORT HIGH BLOOD PRESSURES. DR. ADAMS WITH ORDERS FOR LASIX 40MG IV ONCE BETWEEN UNITS OF PRBC'S AND THEN LABETOLOL 10MG Q4HRS PRN SYSTOLIC BLOOD PRESSURE > 160. RN WILL UPDATE ORDERS.
--- NOTE | 2022-10-30 19:32 | NUR ---
NO ACUTE CHANGES. SAENZ. COMFORT CARE. ALERT TO PERSON AND PLACE. WILL CALL OUT INSTEAD OF USING CALL LIGHT. PROMINENT HERNIA. ROOM AIR. IV TO LEFT ARM. INCONTINENT IN ATTENDS. INCONT OF URINE AND BOWEL. RBKA, MISSING ONE DIGIT ON LEFT HAND. BED REST. RECOMMEND 2-3 STAFF FOR TURNING.
--- NOTE | 2022-10-31 04:50 | NUR ---
HEALTHCARE INTERPRETER SUMMARY: COMFORT CARE PATIENT. DOES NOT CALL OR ADVOCATE NEEDS FOR SELF. SLEEPING AND DIFFICULT TO AROUSE MUCH OF SHIFT WITH A 2-3 HOUR BREAK OF WAKEFULNESS DURING WHICH HE SPENT TALKING NONSENSICAL MUMBLINGS TO HIMSELF. DID ANSWER "YES" OR "NO" TO QUESTIONS. DENIES PAIN AT THIS TIME, THOUGH HAD RECEIVED MEDICATION TWICE PRIOR IN THE BEGINNING OF THE SHIFT DUE TO RESTLESSNESS AND FACIAL EXPRESSION OF DISCOMFORT. SAENZ PATENT AND DRAINING TO GRAVITY. INCONTINENT OF STOOL AND REQUIRED CHANGE ONCE DURING SHIFT. WILL REPORT TO ONCOMING RN.
--- NOTE | 2022-10-31 10:00 | NUR ---
Comfort Care Visit Pt resting in bed and is moaning, stating not well. Pt unable to elaborate and is confused. Pt appears to be having pain as evidenced by moaning and slight work of breathing. Spoke with Primary RN Geneva and recommended pain medication. Palliative Care will remain available.
--- NOTE | 2022-10-31 10:45 | NUR ---
PT BECAME AGITATED, CRYING OUT AND SHAKING. MEDICATED WITH ATIVAN AND MORPHINE. HE STATED THAT HE WAS PAINFUL, BUT WAS UNABLE TO INDICATE WHERE THE PAIN WAS LOCATED. HE DIDN'T EAT MUCH BREAKFAST HE HAS THE PAST FEW DAYS, BUT DID TOLERATE DRINKING WATER AND ORANGE JUICE. AFTER THE PRN MEDICATIONS, PT TOOK IN SOME FLUIDS AND THEN FELL ASLEEP. NO GRIMACING OR RIGID EXTREMITIES TO INDICATE PAIN.
--- NOTE | 2022-10-31 18:17 | NUR ---
COMFORT CARE. IT SECURITY ANALYST ROUNDED ON PT, WILL BEGIN DISCHARGE PLANNING WITH FAMILY. PT'S SAENZ CATHETER IS NOW DRAINING BLOOD TINGED URINE, HOWEVER IT CONTINUES TO FLOW FREELY TO GRAVITY. SCANT CLOTS NOTED. PT SLEPT MOST OF THE SHIFT AFTER A BRIEF PERIOD OF ANXIETY, AND C/O PAIN.
--- NOTE | 2022-11-01 06:43 | NUR ---
SUMMARY PT HAS BEEN MEDICATED TO MAINTAIN COMFORT. PT HAS BEEN REPOSITIONED ORDERED. PT CURRENTLY SLEEPING IN NO DISTRESS.
[2022-11-01] MEDS ORDERED: ATROPINE SULFATE2 M1 SL (11:01)
[2022-11-01] MEDS ORDERED: HALOPERIDOL2 MG/1 ML PO (11:03)
[2022-11-01] MEDS ORDERED: Ativan1 MG PO (11:04)
[2022-11-01] MEDS ORDERED: MORP20L SL (11:05)
[2022-11-01] MEDS ORDERED: HYOSCYAMINE0.125 MG SL (11:06)
[2022-11-01 12:35] LABS: SARS-Cov-2 (COVID-19) PCR, MMC NEGATIVE (NEGATIVE)
--- NOTE | 2022-11-01 14:45 | NUR ---
PATIENT ON COMFORT CARE. ALERT TO VERBAL STIMULI. PATIENT MEDICATED WITH ROXANOL X1 FOR AIR HUNGER THIS AM. PATIENT HAS BEEN SLEEPING IN BED. RECEIVED BEDBATH TODAY. REPOSITIONED, ORAL CARE AND CATHCARE DONE. SAENZ PATENT DRAINING TO GRAVITY WITH YELLOW URINE. MEPILEX DRESSING CHANGED TO COCCYX AREA. NO IV ACCESS. PATIENT DISCHARGE TO [facility]. DISCHARGE PACKET AND RX WAS FAXED TO [facility] BY [facility]. [facility] ALL PATIENT BELONGINGS WERE SENT WITH THE PATIENT. PATIENT LEFT THE ROOM AT 1430. TRANSPORTED VIA GURNEY BY [facility]. REPORT GIVEN TO MARCELLE DAI OVER THE PHONE AT [facility] REGARDING PATIENT CONDITION AT AROUND 1440.
== END 2022-11-01 14:30 | DRG 682 ==
LOC: ER 15:53 → MEDS 22:44 → ERHOLD 22:44 → MEDS 10-26 01:20
PROVIDERS: Emergency Medicine; Family Medicine; Internal Medicine; ADMIT Internal Medicine
DX: N17.9 Acute kidney failure, unspecified (principal); G92.8 Other toxic encephalopathy; I48.20 Chronic atrial fibrillation, unspecified; E87.1 Hypo-osmolality and hyponatremia; Z66 Do not resuscitate; Z51.5 Encounter for palliative care; Z20.822 Contact with and (suspected) exposure to COVID-19; K76.82 Hepatic encephalopathy; E11.649 Type 2 diabetes mellitus with hypoglycemia without coma; D63.8 Anemia in other chronic diseases classified elsewhere; J44.9 Chronic obstructive pulmonary disease, unspecified; I10 Essential (primary) hypertension; M54.9 Dorsalgia, unspecified; G89.29 Other chronic pain; E78.5 Hyperlipidemia, unspecified; M19.90 Unspecified osteoarthritis, unspecified site; E66.01 Morbid (severe) obesity due to excess calories; Z68.27 Body mass index [BMI] 27.0-27.9, adult; E87.5 Hyperkalemia; Z89.511 Acquired absence of right leg below knee; Z90.49 Acquired absence of other specified parts of digestive tract; Z90.89 Acquired absence of other organs; Z89.022 Acquired absence of left finger(s); Z79.4 Long term (current) use of insulin; Z79.82 Long term (current) use of aspirin; Z79.899 Other long term (current) drug therapy
CPT/HCPCS: 0241U; 36415; 36600; 51702; 70450; 71045; 74176; 80048; 80053; 81001; 82140; 82607; 82728; 82746; 82803; 82947; 83036; 83540; 83550; 83880; 84132; 84443; 85025; 85027; 87086; 94660; 94762; 96374-59; 96375-59; 96376-59; 99285-25; A9270; G0480; J0610; J1644; J1815; J3411; J7030; J7799; U0004